=== PATIENT | female | born 1960 | race Caucasian/White ===

== ENCOUNTER → 2019-06-24 | Outpatient (CLI) | payer BC | LOC: COL.RAD 09:49 | DX: I15.1 Hypertension secondary to other renal disorders (principal); N18.9 Chronic kidney disease, unspecified | CPT/HCPCS: A9562; J1940 ==

== ENCOUNTER → 2019-06-25 | Outpatient (CLI) | payer BC | LOC: COL.RAD 07:03 | DX: I15.9 Secondary hypertension, unspecified (principal); N18.9 Chronic kidney disease, unspecified | CPT/HCPCS: A9562; J1940 ==

== ENCOUNTER → 2021-01-29 | Outpatient (CLI) | payer BC ==
[~2021-01-29] MED LIST: ASPIRIN 81M81 MG/TA2 PO; COZAAR 25MG25 MG/TAB PO; EUTHYROX50 MCG PO; FOSAMAX 70MG TA70 MG PO; SF 1.1% GEL1.1% DT
== END ==
LOC: COL.RAD 10:29
DX: K22.4 Dyskinesia of esophagus (principal)

== ENCOUNTER 2021-02-23 09:53 | Day surgery (SDC) | payer BC ==
[~2021-02-23] VITALS: Ht 157.5 cm; Wt 43.0 kg
[2021-02-23 10:54] VITALS: BP 174/98; PULSE 89; TEMP 97.8
[2021-02-23 12:45] VITALS: BP 119/74; PULSE 77; TEMP 98.2
--- NOTE | 2021-02-23 12:45 | NUR ---
PATIENT BROUGHT BACK TO [facility] VIA CART. AMBULATED TO CHAIR WITHOUT DIFFICULTY. PATIENT REQUESTS WATER AND ICE POP. DENIES PAIN OR NAUSEA. VITAL SIGNS STABLE. CORINA AT BEDSIDE TO DRIVE PATIENT HOME. REPORT RECIEVED FROM LICO HAN. WARM BLANKET PROVIDED, WILL MONITOR.
[2021-02-23 13:00] VITALS: BP 129/82; PULSE 75
--- NOTE | 2021-02-23 13:00 | NUR ---
DR. LUNA AT BEDSIDE TO DISCUSS RESULTS. PATIENT TOLERATED FOOD AND DRINK WITHOUT DIFFICULTY. WILL CONTINUE TO MONITOR.
[2021-02-23 13:15] VITALS: BP 114/82; PULSE 74
--- NOTE | 2021-02-23 13:15 | NUR ---
PATIENT STATES SHE FEELS WELL TO GO HOME. IV REMOVED, PATIENT TO GET DRESSED AT THIS TIME.
--- NOTE | 2021-02-23 13:25 | NUR ---
DISCHARGE INSTRUCTIONS REVIEWED WITH PATIENT AND . ALL QUESTIONS ANSWERED. BROUGHT DOWN TO LOBBY VIA WHEEL CHAIR. TO DRIVE PATIENT HOME. ALL BELONGINGS IN HAND.
== END 2021-02-23 13:25 | disposition home or self-care (01) ==
LOC: SDCO 09:53
DX: K22.2 Esophageal obstruction (principal); K58.9 Irritable bowel syndrome, unspecified; M81.0 Age-related osteoporosis without current pathological fracture; E03.9 Hypothyroidism, unspecified; I10 Essential (primary) hypertension; Z20.822 Contact with and (suspected) exposure to COVID-19; Z79.82 Long term (current) use of aspirin; Z79.899 Other long term (current) drug therapy; Z85.810 Personal history of malignant neoplasm of tongue
CPT/HCPCS: 1936; 32158; C1726